=== PATIENT | female | born 1990 | race African-American/Black ===

== ENCOUNTER 2016-03-27 10:44 | Emergency (ER) | payer MEDICAID ==
[2016-03-27 11:15] LABS: BASOPHILS 0.1 % (0.0-2.0); EOSINOPHILS 0.5 % (0-7); HEMATOCRIT 32.9 % (36.0-48.0); HEMOGLOBIN 10.9 g/dL (12-16); IMMATURE GRANULOCYTES 0.2 % (0-5); LYMPHOCYTES 26.1 % (15-50); MCH 31.6 pg (26.0-34.0); MCHC 33.1 g/dL (31.0-37.0); MCV 95.4 fL (80.0-100.0); MONOCYTES 6.1 % (2-11); PLATELET COUNT 170 10x3/uL (130-400); RBC 3.45 10x6/uL (4.00-5.40); RDW 13.9 % (11.5-14.5); WBC 8.6 10x3/uL (4.8-10.8)
[2016-03-27 11:25] LABS: ALBUMIN 3.2 g/dL (3.4-5.0); ALKALINE PHOSPHATASE 55 U/L (46-116); ALT (SGPT) 25 U/L (10-68); BILIRUBIN - TOTAL 0.16 mg/dL (0.2-1.3); CALC OSMOLALITY 273 mosm/kg (275-300); CALCIUM 8.9 mg/dL (8.5-10.1); CHLORIDE - SERUM 104 mmol/L (98-107); CREATININE - SERUM 0.6 mg/dL (0.6-1.3); GLUCOSE 80 mg/dL (74-106); POTASSIUM - SERUM 3.6 mmol/L (3.5-5.1); PROTEIN - SERUM 6.9 g/dL (6.4-8.2); SODIUM 138 mmol/L (136-145); UREA NITROGEN 10 mg/dL (7-18); eGFR NON AFRICAN AMERICAN > 90 mL/min (90-120)
[2016-03-27 11:48] LABS: HCG - QUANTITATIVE (MATERNAL) 9639 mIU/mL
[2016-03-27 11:51] LABS: APPEARANCE CLOUDY (CLEAR); BILIRUBIN NEGATIVE (NEGATIVE); COLOR YELLOW (YELLOW); GLUCOSE NEGATIVE (NEGATIVE); KETONE NEGATIVE (NEGATIVE); LEUKOCYTE ESTERASE TRACE (NEGATIVE); NITRITE NEGATIVE (NEGATIVE); PROTEIN NEGATIVE (NEGATIVE); UROBILINOGEN NORMAL (NORMAL)
[2016-03-27 11:52] LABS: BACTERIA MODERATE /hpf (NONE SEEN); MUCUS <1+ /lpf (NONE SEEN); WHITE CELLS - URINE OCC /hpf (0-5)
[2016-06-03] MEDS ORDERED: ZOVIRAX400 MG (17:12)
[2016-06-03] MEDS ORDERED: DOK100 MG (17:13)
[2016-06-03] MEDS ORDERED: [UNRECOGNIZED DRUG - OTHER] (17:14)
[2016-06-03] MEDS ORDERED: PROTONIX40 MG (17:15)
== END 2016-03-27 12:16 | disposition home or self-care (01) ==
LOC: D.ER 10:44
PROVIDERS: Emergency Medicine
DX: R10.9 Unspecified abdominal pain (principal); R82.71 Bacteriuria; Z3A.17 17 weeks gestation of pregnancy; F41.9 Anxiety disorder, unspecified; F39 Unspecified mood [affective] disorder

== ENCOUNTER → 2016-06-03 16:10 | Outpatient (CLI) | payer MEDICAID ==
[~2016-06-03 16:10] MED LIST: DOK100 MG; PROTONIX40 MG; ZOVIRAX400 MG; [UNRECOGNIZED DRUG - OTHER]
[2016-06-03 17:28] LABS: BASOPHILS 0.1 % (0.0-2.0); EOSINOPHILS 0.4 % (0-7); HEMATOCRIT 28.9 % (36.0-48.0); HEMOGLOBIN 9.8 g/dL (12-16); IMMATURE GRANULOCYTES 0.5 % (0-5); MCH 32.6 pg (26.0-34.0); MCHC 33.9 g/dL (31.0-37.0); MEAN PLATELET VOLUME 11.7 fL (7.4-10.4); MONOCYTES 8.3 % (2-11); NEUTROPHILS 70.7 % (40-80); PLATELET COUNT 164 10x3/uL (130-400); RBC 3.01 10x6/uL (4.00-5.40); RDW 13.1 % (11.5-14.5); WBC 10.4 10x3/uL (4.8-10.8)
[2016-06-03 17:41] LABS: APPEARANCE CLEAR (CLEAR); BILIRUBIN NEGATIVE (NEGATIVE); COLOR YELLOW (YELLOW); GLUCOSE NEGATIVE (NEGATIVE); KETONE NEGATIVE (NEGATIVE); LEUKOCYTE ESTERASE NEGATIVE (NEGATIVE); NITRITE NEGATIVE (NEGATIVE); PROTEIN NEGATIVE (NEGATIVE); UROBILINOGEN NORMAL (NORMAL)
[2016-06-03 17:58] LABS: ALBUMIN 2.8 g/dL (3.4-5.0); ALKALINE PHOSPHATASE 66 U/L (46-116); ALT (SGPT) 21 U/L (10-68); BILIRUBIN - TOTAL 0.16 mg/dL (0.2-1.3); CALC OSMOLALITY 272 mosm/kg (275-300); CALCIUM 8.4 mg/dL (8.5-10.1); CARBON DIOXIDE 25.4 mmol/L (21.0-32.0); CHLORIDE - SERUM 104 mmol/L (98-107); CREATININE - SERUM 0.6 mg/dL (0.6-1.3); GLUCOSE 77 mg/dL (74-106); POTASSIUM - SERUM 3.7 mmol/L (3.5-5.1); PROTEIN - SERUM 6.1 g/dL (6.4-8.2); SODIUM 138 mmol/L (136-145); UREA NITROGEN 6 mg/dL (7-18); eGFR NON AFRICAN AMERICAN > 90 mL/min (90-120)
== END | disposition home or self-care (01) ==
LOC: D.LDO 16:10
PROVIDERS: Obstetrics & Gynecology
DX: Z34.02 Encounter for supervision of normal first pregnancy, second trimester (principal); Z3A.27 27 weeks gestation of pregnancy; R19.7 Diarrhea, unspecified; R11.2 Nausea with vomiting, unspecified

== ENCOUNTER → 2016-07-03 11:43 | Outpatient (CLI) | payer MEDICAID ==
[2016-07-03 12:35] LABS: APPEARANCE HAZY (CLEAR); BILIRUBIN NEGATIVE (NEGATIVE); COLOR YELLOW (YELLOW); GLUCOSE NEGATIVE (NEGATIVE); KETONE NEGATIVE (NEGATIVE); LEUKOCYTE ESTERASE NEGATIVE (NEGATIVE); NITRITE NEGATIVE (NEGATIVE); PROTEIN NEGATIVE (NEGATIVE); SPECIFIC GRAVITY 1.005 (1.005-1.020); UROBILINOGEN NORMAL (NORMAL)
== END | disposition home or self-care (01) ==
LOC: D.LDO 11:43
PROVIDERS: Obstetrics & Gynecology
DX: O26.899 Other specified pregnancy related conditions, unspecified trimester (principal); M25.551 Pain in right hip; R30.9 Painful micturition, unspecified; R05 Cough; R09.89 Other specified symptoms and signs involving the circulatory and respiratory systems; R10.9 Unspecified abdominal pain

== ENCOUNTER 2016-07-05 16:23 | Emergency (ER) | payer MEDICAID ==
[2016-07-05 17:21] LABS: BASOPHILS 0.1 % (0-2); EOSINOPHILS 0.3 % (0-7); HEMATOCRIT 28.9 % (36.0-48.0); HEMOGLOBIN 9.8 g/dL (12-16); IMMATURE GRANULOCYTES 0.7 % (0-5); LYMPHOCYTES 12.3 % (15-50); MCH 32.1 pg (26.0-34.0); MCHC 33.9 g/dL (31.0-37.0); MCV 94.8 fL (80.0-100.0); MEAN PLATELET VOLUME 10.5 fL (7.4-10.4); MONOCYTES 5.1 % (2-11); NEUTROPHILS 81.5 % (40-80); PLATELET COUNT 168 10x3/uL (130-400); RBC 3.05 10x6/uL (4.00-5.40); WBC 12.2 10x3/uL (4.8-10.8)
[2016-07-05 17:38] LABS: ALBUMIN 2.5 g/dL (3.4-5.0); ALKALINE PHOSPHATASE 100 U/L (46-116); ALT (SGPT) 23 U/L (10-68); BILIRUBIN - TOTAL 0.28 mg/dL (0.2-1.3); CALC OSMOLALITY 269 mosm/kg (275-300); CALCIUM 8.5 mg/dL (8.5-10.1); CARBON DIOXIDE 24.6 mmol/L (21.0-32.0); CHLORIDE - SERUM 104 mmol/L (98-107); CREATININE - SERUM 0.6 mg/dL (0.6-1.3); GLUCOSE 82 mg/dL (74-106); POTASSIUM - SERUM 3.5 mmol/L (3.5-5.1); PROTEIN - SERUM 6.3 g/dL (6.4-8.2); SODIUM 137 mmol/L (136-145); UREA NITROGEN 4 mg/dL (7-18); eGFR NON AFRICAN AMERICAN > 90 mL/min (90-120)
== END 2016-07-05 17:33 | disposition home or self-care (01) ==
LOC: D.ER 16:23
PROVIDERS: Emergency Medicine
DX: O26.893 Other specified pregnancy related conditions, third trimester (principal); Z3A.31 31 weeks gestation of pregnancy; R11.0 Nausea

== ENCOUNTER → 2016-07-06 13:40 | Outpatient (CLI) | payer MEDICAID ==
[2016-07-06 14:27] LABS: BASOPHILS 0.1 % (0-2); EOSINOPHILS 0.6 % (0-7); HEMATOCRIT 27.8 % (36.0-48.0); HEMOGLOBIN 9.3 g/dL (12-16); IMMATURE GRANULOCYTES 0.8 % (0-5); LYMPHOCYTES 23.9 % (15-50); MCH 32.6 pg (26.0-34.0); MCHC 33.5 g/dL (31.0-37.0); MEAN PLATELET VOLUME 11.5 fL (7.4-10.4); MONOCYTES 7.9 % (2-11); NEUTROPHILS 66.7 % (40-80); PLATELET COUNT 174 10x3/uL (130-400); RBC 2.85 10x6/uL (4.00-5.40); RDW 12.9 % (11.5-14.5)
[2016-07-06 14:31] LABS: MCV 97.5 fL (80.0-100.0); WBC 8.4 10x3/uL (4.8-10.8)
[2016-07-06 15:06] LABS: ALBUMIN 2.4 g/dL (3.4-5.0); ALKALINE PHOSPHATASE 97 U/L (46-116); ALT (SGPT) 25 U/L (10-68); BILIRUBIN - TOTAL 0.17 mg/dL (0.2-1.3); CALC OSMOLALITY 273 mosm/kg (275-300); CALCIUM 8.2 mg/dL (8.5-10.1); CARBON DIOXIDE 24.1 mmol/L (21.0-32.0); CHLORIDE - SERUM 107 mmol/L (98-107); CREATININE - SERUM 0.6 mg/dL (0.6-1.3); GLUCOSE 72 mg/dL (74-106); POTASSIUM - SERUM 3.5 mmol/L (3.5-5.1); PROTEIN - SERUM 5.4 g/dL (6.4-8.2); SODIUM 139 mmol/L (136-145); UREA NITROGEN 5 mg/dL (7-18); eGFR NON AFRICAN AMERICAN > 90 mL/min (90-120)
[2016-07-06 15:16] LABS: APPEARANCE CLOUDY (CLEAR); BILIRUBIN NEGATIVE (NEGATIVE); COLOR YELLOW (YELLOW); GLUCOSE NEGATIVE (NEGATIVE); KETONE NEGATIVE (NEGATIVE); LEUKOCYTE ESTERASE 1+ (NEGATIVE); NITRITE NEGATIVE (NEGATIVE); PROTEIN NEGATIVE (NEGATIVE); UROBILINOGEN NORMAL (NORMAL)
[2016-07-06 15:17] LABS: BACTERIA MANY /hpf (NONE SEEN); MUCUS <1+ /lpf (NONE SEEN); RED CELLS - URINE 0-5 /hpf (0-5); WHITE CELLS - URINE 0-5 /hpf (0-5)
== END | disposition home or self-care (01) ==
LOC: D.LDO 13:40
PROVIDERS: Obstetrics & Gynecology
DX: Z34.03 Encounter for supervision of normal first pregnancy, third trimester (principal); Z3A.31 31 weeks gestation of pregnancy; R11.2 Nausea with vomiting, unspecified

== ENCOUNTER → 2016-07-24 13:32 | Outpatient (CLI) | payer MEDICAID | END | disposition home or self-care (01) | LOC: D.LDO 13:32 | DX: Z34.93 Encounter for supervision of normal pregnancy, unspecified, third trimester (principal); Z3A.34 34 weeks gestation of pregnancy ==

== ENCOUNTER → 2016-08-18 10:30 | Outpatient (CLI) | payer MEDICAID | END | disposition home or self-care (01) | LOC: D.LDO 10:30 → D.ER 10:30 → EDSTATUS 11:33 | DX: Z34.03 Encounter for supervision of normal first pregnancy, third trimester (principal); V49.9XXA Car occupant (driver) (passenger) injured in unspecified traffic accident, initial encounter; Z3A.37 37 weeks gestation of pregnancy ==

== ENCOUNTER 2016-08-22 01:56 | Inpatient (IN) | payer MEDICAID ==
[~2016-08-22] VITALS: Ht 162.6 cm; Wt 75.8 kg
[2016-08-22] MEDS ORDERED: PRENATAL COMPLE1 TAB PO (02:20)
[2016-08-22 02:22] VITALS: BP 119/69; BMI 28.7
[2016-08-22 02:44] LABS: HEMATOCRIT 31.3 % (36.0-48.0); HEMOGLOBIN 10.6 g/dL (12-16); MCH 32.2 pg (26.0-34.0); MCHC 33.9 g/dL (31.0-37.0); MCV 95.1 fL (80.0-100.0); MEAN PLATELET VOLUME 12.1 fL (7.4-10.4); RBC 3.29 10x6/uL (4.00-5.40); RDW 13.5 % (11.5-14.5); WBC 11.8 10x3/uL (4.8-10.8)
[2016-08-22 02:45] LABS: APPEARANCE CLEAR (CLEAR); BACTERIA NONE SEEN /hpf (NONE SEEN); BILIRUBIN NEGATIVE (NEGATIVE); COLOR YELLOW (YELLOW); EPITHELIAL CELLS RARE /hpf (0-5); GLUCOSE NEGATIVE (NEGATIVE); KETONE NEGATIVE (NEGATIVE); LEUKOCYTE ESTERASE TRACE (NEGATIVE); NITRITE NEGATIVE (NEGATIVE); PROTEIN NEGATIVE (NEGATIVE); RED CELLS - URINE 0-5 /hpf (0-5); SPECIFIC GRAVITY 1.015 (1.005-1.020); UROBILINOGEN NORMAL (NORMAL); WHITE CELLS - URINE 0-5 /hpf (0-5)
[2016-08-22 02:52] LABS: UDS - AMPHET NEGATIVE QUAL (NEGATIVE); UDS - BARB NEGATIVE QUAL (NEGATIVE); UDS - BENZO NEGATIVE QUAL (NEGATIVE); UDS - COCAINE NEGATIVE QUAL (NEGATIVE); UDS - METH NEGATIVE QUAL (NEGATIVE); UDS - OPIATE NEGATIVE QUAL (NEGATIVE); UDS - PCP NEGATIVE QUAL (NEGATIVE); UDS - THC NEGATIVE QUAL (NEGATIVE)
[2016-08-22 07:15] VITALS: BP 116/55
--- NOTE | 2016-08-22 07:15 | NUR ---
RECEIVED PT SITTING UP IN BED. VSS. HRRR WITHOUT AUDIBLE MURMUR. BBS CLEAR. BS X 4. ABDOMEN SOFT/NON-DISTENDED. FUNDUS FIRM AT U/U. RUBRA LOCHIA MOD AMT. NO CLOTS EXPRESSED ON FUNDAL MASSAGE. PERIPAD CHANGED. NO CLOTS NOTED. NEG HOMANS' SIGN. PPP. NO EDEMA NOTED TO BLE. DTR'S 1+/1+. PT STATES LEGS CONTINUE TO FEEL NUMB. PIV OF NS WITH PITOCIN 20 UNITS INFUSING AT 25 ML/HR. SITE CLEAR. PIV CONVERTED TO SL. REGULAR DIET SERVED. SR UPX 2. CALL LIGHT IN REACH.
--- NOTE | 2016-08-22 09:00 | NUR ---
PT LYING TO LEFT SIDE. AWAKE. STATES UPPER LEGS CONTINUE NUMB. FUNDUS FIRM AT U/U. RUBRA LOCHIA SMALL TO MOD AMT. PERIPAD CHANGED. PT DENIES NEEDS OR C/O.
--- NOTE | 2016-08-22 10:00 | NUR ---
PT SITTING UP IN BED. AT THIS TIME. INSTRUCTED TO CALL NURSE WHEN FINISHED WITH FEEDING INFANT. VERBALIZES UNDERSTANDING.
--- NOTE | 2016-08-22 10:30 | NUR ---
PT OOB AND AMB TO BR. VOIDS LARGE AMT OF BLOOD-TINGED URINE. PERICARE DONE PER PT. PANTIES AND PAD ON. GOWN CHANGED. PT TRANSFERED VIA AMBULATORY TO ROOM 1257. PT TO BED. ORIENTED TO ROOM, BED, AND CALL LIGHT. SR UPX 2. CALL LIGHT IN REACH.
--- NOTE | 2016-08-22 13:18 | NUR ---
PT AMBULATORY BACK TO BED. STATES VOIDED THIRD TIME WITHOUT DIFFICULTY. C/O ABDOMINAL CRAMPING AND "SORENESS" OF "8" ON 0-10 PAIN SCALE. IBUPROFEN 600 MG GIVEN PO PER PT REQUEST TO WAIT TO TAKE PAIN MED AFTER BOYFRIEND RETURNS. PT INSTRUCTED ON MED. VERBALIZES UNDERSTANDING.
--- NOTE | 2016-08-22 14:39 | NUR ---
PT AMBULATORY IN HALLS. TOLERATES ACTIVITY WELL. VOICES NO C/O.
--- NOTE | 2016-08-22 15:19 | NUR ---
PT SITTING UP IN BED. INFANT. VSS. FUNDUS FIRM AT U/U. RUBRA LOCHIA SMALL AMT. NO CLOTS OR HEAVY BLEEDING PER PT STATES.
[2016-08-22 15:30] VITALS: BP 136/80
[2016-08-22 16:08] VITALS: Ht 162.6 cm; Wt 75.8 kg
--- NOTE | 2016-08-22 16:52 | NUR ---
PT SITTING UP IN BED. VISITS WITH FAMILY. STATES PAIN NOW "5" ON 0-10 PAIN SCALE. DENIES NEEDS OR C/O.
--- NOTE | 2016-08-22 18:25 | NUR ---
PT SITTING UP IN BED. CONSUMING REGULAR DIET. VOICES C/O MILD ABDOMINAL CRAMPING AND PAIN TO "MY BUTT". PT STATES SHOWERED AND SHOWER HELPED SOME WITH DISCOMFORT. PT FAMILY IN ROOM WITH PT.
--- NOTE | 2016-08-22 18:52 | NUR ---
REPORT GIVEN TO ONCOMING SHIFT.
[2016-08-22 19:39] VITALS: BP 125/72
--- NOTE | 2016-08-22 19:39 | NUR ---
SHIFT ASSESSMENT COMPLETED. VSS. FUNDUS FIRM INITIALLY DEVIATED TO RIGHT AND U3, BLADDER SLIGHTLY DISTENDED. PT VERBALIZES NEED TO VOID BUT STATES THAT SHE HAS BEEN "HOLDING IT BECAUSE IT HURTS TO MOVE." ENCOURAGED ACTIVITY, EXPLAINED WITH THE MORE ACTIVITY THAT IS DONE THE EASIER IT GET TO MOVE AND THE PAIN ACTUALLY DECREASES. PT UP TO VOID. EXPLAINED IMPORTANCE OF VOIDING REGULARLY AND THAT THIS ALSO HELPS TO DECREASE DISCOMFORT. FOLLOWING VOID FUNDUS U2, FIRM, SMALL AMT RUBRA LOCHIA NOTED TO PERIPAD, NO CLOTS. MILD SWELLING NOTED TO BILATERAL LABIA, ICE PACK GIVEN. PT REPORTS THAT PAIN IS CURRENTLY 9/10 TO BACK, PERINUM AND ABD CRAMPING. REQUEST PAIN MEDICATION. NORCO AND MOTRIN GIVEN PER REQUEST. S/O AT BEDSIDE CURRENLTY BONDING WITH INFANT, EDUCATED ON MEDICATIONS USES, FREQUENCY AND SIDE EFFECTS. REINFORCED WITH PT THAT IF SHE IS HOLDING INFANT AND BECOMES DROWSY TO NOTIFY GIVE TO S/O OR CALL RN TO ASSIST WITH INFANT, VERBALIZED UNDERSTANDING. INSTRUCTED ON FALL PRECAUTIONS AND USE OF CL FOR ASSISTANCE OOB PRN, VERBALIZED UNDERSTANDING. BOWEL SOUNDS PRESENT AND ACTIVE X4 QUADS. PT STATES THAT SHE IS PASSING FLATUS AND DID HAVE BM TODAY. VOIDING WITHOUT DIFFICULTY. ICE WATER AND GRAPE JUICE GIVEN PER REQUEST. S/O PROVIDED WITH LINENS AND PILLOW FOR THE NIGHT. DENIES ADDITIONAL NEEDS. CL AND PHONE WITHIN PT REACH. BED IN LOW POSITION WITH UPPER SIDE RAILS RAISED X2. WILL CONT TO MONITOR AND ASSIST PRN.
--- NOTE | 2016-08-22 20:22 | NUR ---
PAIN REASSESSMENT COMPLETED. PT REPORTS THAT PAIN IS NOW 7/10. STATES THAT IT WAS LOWER BUT CRAMPING RETURNED WHEN SHE ATTEMPTED TO BREAST FEED AND PUT INFANT SKIN TO SKIN. STATES THAT ICE PACK TO PERINUM HAS "REALLY HELPED, IT JUST FEELS BRUISED NOW." S/O REMAINS AT BEDSIDE AND SUPPORTIVE OF PT. PT DENIES NEEDS AT THIS TIME. RN EDUCATED THAT WHEN HOLDING INFANT IT IS NORMAL TO CRAMP MORE WELL FOR CRAMPING TO INCREASE DURING BREAST FEEDING, VERBALIZED UNDERSTANDING. BED REMAINS IN LOW POSITION WITH UPPER SIDE RAILS RAISED X2. CL AND PHONE WITHIN REACH.
--- NOTE | 2016-08-22 21:19 | NUR ---
ROUNDS MADE. INFANT IN CRIB AT BEDSIDE. PT FILLING OUT NB PAPERWORK. S/O REMAINS AT BEDSIDE. PAIN NOW 06/01. ICE WATER GIVEN. PT DENIES NEEDS AT THIS TIME. BED IN LOW POSITION WITH UPPER SIDE RAILS RAISED X2. CL AND PHONE WITHIN PT REACH. WILL CONT TO MONITOR AND ASSIST PRN.
--- NOTE | 2016-08-23 00:23 | NUR ---
ROUNDS MADE. PT WITH SKIN TO SKIN. ICE CHIPS AND GRAPE JUICE GIVEN PER REQUESTS. PAIN 4-5/10, NORCO OFFERED. PT STATES THAT SHE WILL CALL IF SHE DECIDES TO TAKE PAIN MEDICATION. S/O SLEEPING ON COUCH AT BEDSIDE. PT STATES THAT SHE "IS JUST SORE." BED REMAINS IN LOW POSITION, WITH UPPER SIDE RAILS RAISED X2. CL AND PHONE WITHIN PT REACH. WILL CONT TO MONITOR AND ASSIST PRN.
--- NOTE | 2016-08-23 02:09 | NUR ---
ROUNDS MADE. PT RESTING WITH EYES CLOSED. RESPIRATIONS REGULAR, NO S/S OF DISTRESS NOTED. S/O REMAINS AT BEDSIDE. CL AND PHONE WITHIN REACH. BED IN LOW POSITION WITH UPPER SIDE RAILS RAISED X2. WILL CONT TO MONITOR AND ASSIST PRN.
--- NOTE | 2016-08-23 04:14 | NUR ---
ROUNDS MADE. PT LAYING ON RIGHT SIDE RESTING WITH EYES CLOSED. RESPIRATIONS REGULAR, NO S/S OF DISTRESS NOTED. S/O SLEEPING AT BEDSIDE. IN NBN. BED IN LOW POSITION WITH UPPER SIDE RAILS RAISED X2. CL AND PHONE WITHIN PT REACH. WILL CONT TO MONITOR AND ASSIST PRN.
--- NOTE | 2016-08-23 05:55 | NUR ---
ROUNDS MADE. LAB AT BEDSIDE. PT WITH INFANT SKIN TO SKIN. DENIES NEEDS AT THIS TIME. S/O REMAINS AT BEDSIDE. BED IN LOW POSITION WITH UPPER SIDE RAILS RAISED X2. CL AND PHONE WITHIN PT REACH. WILL CONT TO MONITOR AND ASSIST PRN.
[2016-08-23 06:14] LABS: BASOPHILS 0.2 % (0-2); EOSINOPHILS 0.5 % (0-7); HEMATOCRIT 29.7 % (36.0-48.0); IMMATURE GRANULOCYTES 0.6 % (0-5); LYMPHOCYTES 28.5 % (15-50); MCH 31.9 pg (26.0-34.0); MCHC 33.7 g/dL (31.0-37.0); MCV 94.9 fL (80.0-100.0); MEAN PLATELET VOLUME 11.7 fL (7.4-10.4); MONOCYTES 8.3 % (2-11); NEUTROPHILS 61.9 % (40-80); PLATELET COUNT 166 10x3/uL (130-400); RBC 3.13 10x6/uL (4.00-5.40); RDW 13.5 % (11.5-14.5); WBC 12.6 10x3/uL (4.8-10.8)
--- NOTE | 2016-08-23 07:40 | NUR ---
PT IN HIGH FOWLERS POSITION NURSING INFANT AND EATING BREAKFAST TRAY. FRESH ICE CHIPS PROVIDED PER REQUEST. WILL RETURN AFTER BREAKFAST IS COMPLETE.
--- NOTE | 2016-08-23 08:25 | NUR ---
PT IN HIGH FOWLERS POSITION NURSING INFANT. PHYSICAL ASSESSMENT DONE, SEE SHIFT ASSESSMENT. BOWEL SOUNDS ACTIVE X 4. PT REPORTS HAVING A SMALL BM SINCE DELIVERY AND CONTINUES TO PASS GAS. FUNDUS FIRM. LIGHT RUBRA LOCHIA NOTED ON MAURICIO PAD. PT DENIES EXPRESSING CLOTS THROUGHOUT THE NIGHT. SALINE LOCK IN LEFT WRIST DCD WITH TIP INTACT PER ORDERS. PT RATES PAIN 5/10 IN ABDOMEN AND PERINEUM. REQUEST PAIN MEDICATION. ROOM CLEANED UP.
--- NOTE | 2016-08-23 08:29 | NUR ---
NORCO 5/325MG AND MOTRIN 600MG GIVEN PO FOR PAIN. PT REQUESTS NURSERY ASSISTANCE FOR BF QUESTIONS. CAMACHO SHELTON NOTIFIED AND TO ROOM. PT DENIES FURTHER NEEDS AT THIS TIME.
[2016-08-23 08:31] VITALS: BP 126/70
--- NOTE | 2016-08-23 09:30 | NUR ---
PT IN SEMI FOWLERS POSITION RESTING WITH EYES CLOSED. AROUSES TO VERBAL STIMULATION. INFANT TO NURSERY VIA CRIB FOR PT TO REST. PT RATES PAIN 2/10 AND DENIES FURTHER NEEDS.
--- NOTE | 2016-08-23 11:00 | NUR ---
PT IN LEFT LATERAL POSITON RESTING WITH EYES CLOSED.
--- NOTE | 2016-08-23 12:10 | NUR ---
PT IN LEFT LATERAL POSITION RESTING WITH EYES CLOSED. RESP. EVEN AND UNLABORED. RESTING QUIETLY IN CRIB.
--- NOTE | 2016-08-23 13:39 | NUR ---
PT AMBULATING AROUND ROOM. FAMILY AT BEDSIDE HOLDING . PT JUST FINISHED SHOWER AND REQUESTS THAT PAIN MEDICINE BE BROUGHT IN "AROUND 2PM". PT DENIES FURTHER NEEDS AT THIS TIME.
--- NOTE | 2016-08-23 15:30 | NUR ---
PT AMBULATING IN HALLWAY WITH FAMILY. PT RATES PAIN 3/10 AND DENIES FURTHER NEEDS AT THIS TIME.
--- NOTE | 2016-08-23 16:30 | NUR ---
PT AMBULATING IN THE HALLWAY WITH FAMILY AND DENIES NEEDS AT THIS TIME.
[2016-08-23 16:45] VITALS: BP 107/53
--- NOTE | 2016-08-23 16:55 | NUR ---
PT IN LEFT LATERAL POSITION, RESTING QUIETLY IN CRIB. VS OBTAINED. FF; U/U. LIGHT RUBRA LOCHIA. PT CONTINUES TO DENY PASSING CLOTS.
--- NOTE | 2016-08-23 18:30 | NUR ---
PT IN HIGH FOWLERS POSITION HOLDING INFANT AND FILLING OUT NURSURY PAPERWORK. PT DENIES PAIN OR NEEDS AT THIS TIME.
--- NOTE | 2016-08-23 19:05 | NUR ---
BEDSIDE REPORT REC'D FROM Danilo DODD RN. PT REC'D SITTING ON SIDE OF BED. STATES THAT SHE AND S/O ARE WANTING TO GO WALK AROUND UNIT. ASK THAT ASSESSMENT BED COMPLETED WHEN SHE RETURNS TO THE UNIT. DENIES NEEDS AT THIS TIME. INSTRUCTED TO USE CL WHEN SHE RETURNS TO ROOM AND IS READY FOR ASSESSMENT TO BE COMPLETED, VERBALIZED UNDERSTANDING.
[2016-08-23 19:33] VITALS: BP 115/64
--- NOTE | 2016-08-23 19:33 | NUR ---
PT CALLS VIA CL, REPORTS THAT SHE IS BACK TO HER ROOM. RN TO ROOM, SHIFT ASSESSMENT COMPLETED. FUNDUS FIRM, U3 WITH SMALL AMT RUBRA LOCHIA TO PERIPAD. PT REPORTS THAT PAIN IS 3-4/10 FOLLOWING FUNDAL CHECK AND THAT "I'M CRAMPING A LITTLE NOW." PAIN MEDICATION OFFERED AND DECLINED AT THIS TIME. EXPLAINED FREQUENCY OF PAIN MEDS AND THAT SHE HAD TO ASK FOR THEM, VERBALIZED UNDERSTANDING. S/O AT BEDSIDE, SUPPORTIVE OF PT. BOWEL SOUNDS ACTIVE X4 QUADRANTS, VOIDING WITHOUT DIFFICULTY, STATES THAT SHE HAS NOT HAD A BM TODAY. DISCHARGE PLANNING DISCUSSED WITH PT AND S/O, DENIES QUESTIONS AT THIS TIME. TRASH TAKEN OUT OF ROOM AND NEW TRASH BAGS PUT IN TRASH CANS. PERIPADS AND DISPOSABLE PANTIES GIVEN PER REQUEST. DENIES ADDITIONAL NEEDS AT THIS TIME. CL AND PHONE WITHIN PT REACH. NBN RN TO ROOM WITH INFANT. BED IN LOW POSITION WITH UPPER SIDE RAILS RAISED X2. WILL CONT TO MONITOR AND ASSIST PRN.
--- NOTE | 2016-08-23 20:31 | NUR ---
ROUNDS MADE. S/O AT BEDSIDE. PT UP TO BATHROOM VOIDING. DENIES NEEDS AT THIS TIME. CONTINUES TO RATE PAIN 4/10, STATES THAT SHE WANTS TO WAIT UNTIL LATER TO TAKE PAIN MEDICATION BECAUSE IT MAKES HER DROWSY AND SHE HAS VISITORS COMING AND WANTS TO FEED INFANT AGAIN PRIOR TO TAKING. BED REMAINS IN LOW POSITION WITH UPPER SIDE RAILS RAISED X2. CL AND PHONE WITHIN REACH. WILL CONT TO MONITOR AND ASSIST PRN.
--- NOTE | 2016-08-23 21:29 | NUR ---
ROUNDS MADE. PT SITTING IN HIGH FOWLERS POSITION CONVERSING AND LAUGHING WITH VISITORS. DENIES NEEDS AT THIS TIME. CL AND PHONE WITHIN PT REACH. WILL CONT TO MONITOR AND ASSIST PRN. BED IN LOW POSITION.
--- NOTE | 2016-08-23 22:39 | NUR ---
ROUNDS MADE. PT AND ASKS FOR PAIN MEDS. STATES PAIN IS 8/10, INTERMITTENT ABD CRAMPING. PT REQUEST MOTRIN AND NORCO BE TAKEN AT THE SAMES TIME STATING THAT THEY SEEM TO WORK BETTER TOGETHER. S/O REMAINS AT BEDSIDE AND SUPPORTIVE OF PT. PT REPORTS THAT RIGHT NIPPLE IS REALLY SORE, CRACK NOTED. LANOLIN GIVEN WITH INSTRUCTION ON USE, DEMONSTRATED UNDERSTANDING. BED IN LOW POSITION WITH UPPER SIDE RAILS RAISED X2. CL AND PHONE PLACED WITHIN PT REACH. PT STATES THAT IF SHE GETS DROWSY SHE WILL HAVE S/O TAKE . WILL CONT TO MONITOR AND ASSIST PRN
--- NOTE | 2016-08-23 23:29 | NUR ---
PAIN REASSESSMENT COMPLETED. PT REPORTS THAT PAIN IS 5/10, DENIES NEED FOR ADDITIONAL INTERVENTION. WILL CONT TO MONITOR AND ASSIST PRN. PT CURRENTLY BONDING WITH INFANT.
--- NOTE | 2016-08-24 00:31 | NUR ---
ROUNDS MADE. PT CONTINUES TO BE BONDING WITH . PAIN 05/01, DENIES NEEDS AT THIS TIME. S/O SLEEPING ON COUCH. BED IN LOW POSITION WITH UPPER SIDE RAILS RAISED X2. CL AND PHONE WITHIN REACH. WILL CONT TO MONITOR AND ASSIST PRN.
--- NOTE | 2016-08-24 02:18 | NUR ---
ROUNDS MADE. PT FOUND TO BE SLEEPING WITH INFANT IN BED WITH HER. PT WOKE BY RN, REINFORCED THAT CAN'T BE IN BED WITH HER SLEEPING. PLACED IN CRIB. PT REQUESTS INFANT BE TAKEN TO NBN FOR HER TO REST. DENIES NEEDS AT THIS TIME. S/O SLEEPING ON COUCH. BED IN LOW POSITION, UPPER SIDE RAILS RAISED X2. CL AND PHONE WITHIN PT REACH. BACK TO NBN. WILL CONT TO MONITOR AND ASSIST PRN.
--- NOTE | 2016-08-24 04:06 | NUR ---
ROUNDS MADE. PT IN HIGH FOWLWERS POSITION BONDING WITH . DENIES NEEDS AT THIS TIME. S/O CONTINUES TO SLEEP ON COUCH. PAIN 3-4/10, DENIES NEED FOR INTERVENTION AT THIS TIME. BED IN LOW POSITION WITH UPPER SIDE RAILS RAISED X2. CL AND PHONE WITHIN REACH. WILL CONT TO MONITOR AND ASSIST PRN.
--- NOTE | 2016-08-24 05:53 | NUR ---
ROUNDS MADE. PT REPORTS THAT PAIN IS 8/10 ABD CRAMPING. PT WITH INFANT SKIN TO SKIN AND REPOPTS THAT SHE JUST FINISHED BREAST FEEDING. PT ASKS FOR MOTRIN AND NORCO, GIVEN PER REQUEST. ICE CHIPS AND ORANGE JUICE GIVEN. S/O REMAINS IN ROOM SLEEPING ON COUCH. DENIES ADDITIONAL NEEDS. BED IN LOW POSITION WITH UPPER SIDE RAILS RAISED X2. CL AND PHONE WITHIN PT REACH.
--- NOTE | 2016-08-24 06:44 | NUR ---
PAIN REASSESSMENT COMPLETED. PT RESTING WITH EYES CLOSED IN SEMI FOWLERS POSITIONS. RESPIRATIONS REGULAR AND UNLABORED. S/O REMAIN IN ROOM SLEEPING ON COUCH. BED IN LOW POSITION WITH UPPER SIDE RAILS RAISED X2. CL AND PHONE WITHIN REACH. WILL CONT TO MONITOR AND ASSIST PRN.
[2016-08-24 07:55] VITALS: BP 126/77
--- NOTE | 2016-08-24 07:55 | NUR ---
THIS RN TO ROOM FOR SHIFT ASSESSMENT. PT SITTING UP IN BED TALKING ON PHONE. PT ENDS PHONE CALL FOR ASSESSMENT. SHIFT ASSESSMENT COMPLETED, VSS, SEE FLOWSHEET FOR DOC. PT DENIES HEAVY LOCHIA, EDUCATED ON WHAT TO REPORT. UNDERSTANDING VERBALIZED. PT C/O PAIN IN ABD, CRAMPING, AND PAIN AT COCCYX FROM SITTING IN BED. PT REQUESTING PAIN MEDICATION. PT INSTRUCTED ON ORDERED TIMES FOR PAIN MEDICATION, AND THAT NO MEDS ARE AVAILABLE TO ADMIN AT THIS TIME IT HAS ONLY BEEN 2 HOURS SINCE SHE RECEIVED BOTH PAIN MEDS. PT ENCOURAGED TO AMBULATE AND TAKE A WARM SHOWER TO HELP WITH PAIN RELIEF. UNDERSTANDING VERBALIZED, PT STATES "YEAH I DO NEED TO GET UP OUT OF THIS BED." PT PROVIDED WITH TOWELS AND CLOTHS FOR SHOWER, DENIES FURTHER NEEDS. DISCHARGE TO HOME TODAY DISCUSSED WITH PT, WILL PROCEED WITH DISCHARGE ORDERED. SRUx2, CL IN REACH. WILL CONT TO MONITOR.
--- NOTE | 2016-08-24 11:07 | NUR ---
PT CALLS OUT WAFER FAB TECHNICIAN LIGHT REQUESTING PAIN MEDICATION, ADMIN ORDERED. SEE EMAR FOR DOC.
--- NOTE | 2016-08-24 11:45 | NUR ---
PT GIVEN D/C INSTRUCTIONS WELL WRITTEN PRESCIPTIONS FOR PAIN CONTROL POST DISCHARGE TO HOME. PT VERBALIZES UNDERSTANDING AND DENIES QUESTIONS. WILL CALL FOR W/C TO PRIVATE VEHICLE FOR D/C.
--- NOTE | 2016-08-24 11:52 | NUR ---
PT TAKEN OUT VIA W/C TO PRIVATE VEHICLE FOR D/C TO HOME. FOB TO DRIVE PT HOME.
[2016-08-25 03:09] LABS: RAPID PLASMA REAGIN Non Reactive (Non Reactive)
== END 2016-08-24 11:52 | disposition home or self-care (01) | DRG 774 ==
LOC: D.LD 01:56
PROVIDERS: ADMIT Obstetrics & Gynecology
PROC: 10E0XZZ Delivery of Products of Conception, External Approach (ICD-10-PCS; principal; 2016-08-22)
DX: O98.32 Other infections with a predominantly sexual mode of transmission complicating childbirth (principal); O99.324 Drug use complicating childbirth; A60.00 Herpesviral infection of urogenital system, unspecified; Z3A.38 38 weeks gestation of pregnancy; Z37.0 Single live birth; O99.824 Streptococcus B carrier state complicating childbirth; O99.02 Anemia complicating childbirth; O99.334 Smoking (tobacco) complicating childbirth; F12.90 Cannabis use, unspecified, uncomplicated

== ENCOUNTER 2016-10-24 17:02 | Emergency (ER) | payer MEDICAID ==
[2016-08-22 16:08] VITALS: BMI 28.6
[~2016-10-24 17:02] MED LIST changes: +PRENATAL COMPLE1 TAB PO
[2016-10-24 17:48] LABS: APPEARANCE CLEAR (CLEAR); BILIRUBIN NEGATIVE (NEGATIVE); COLOR YELLOW (YELLOW); GLUCOSE NEGATIVE (NEGATIVE); KETONE NEGATIVE (NEGATIVE); LEUKOCYTE ESTERASE NEGATIVE (NEGATIVE); NITRITE NEGATIVE (NEGATIVE); PROTEIN NEGATIVE (NEGATIVE); SPECIFIC GRAVITY 1.025 (1.005-1.020); UROBILINOGEN NORMAL (NORMAL)
[2016-10-24 18:13] LABS: BASOPHILS 0.3 % (0-2); EOSINOPHILS 2.4 % (0-7); HEMOGLOBIN 13.2 g/dL (12-16); IMMATURE GRANULOCYTES 0.2 % (0-5); LYMPHOCYTES 46.2 % (15-50); MCH 31.1 pg (26.0-34.0); MCHC 33.8 g/dL (31.0-37.0); MEAN PLATELET VOLUME 12.2 fL (7.4-10.4); MONOCYTES 8.3 % (2-11); NEUTROPHILS 42.6 % (40-80); PLATELET COUNT 181 10x3/uL (130-400); RBC 4.24 10x6/uL (4.00-5.40); RDW 13.1 % (11.5-14.5); WBC 5.9 10x3/uL (4.8-10.8)
[2016-10-24 18:27] LABS: ALBUMIN 3.8 g/dL (3.4-5.0); ALKALINE PHOSPHATASE 116 U/L (46-116); ALT (SGPT) 20 U/L (10-68); AMYLASE - SERUM 77 U/L (25-115); BILIRUBIN - TOTAL 0.37 mg/dL (0.2-1.3); CALC OSMOLALITY 282 mosm/kg (275-300); CALCIUM 8.9 mg/dL (8.5-10.1); CARBON DIOXIDE 29.2 mmol/L (21.0-32.0); CHLORIDE - SERUM 105 mmol/L (98-107); CREATININE - SERUM 0.9 mg/dL (0.6-1.3); GLUCOSE 82 mg/dL (74-106); HCG SERUM NEGATIVE (NEGATIVE); LIPASE 363 U/L (73-393); POTASSIUM - SERUM 3.7 mmol/L (3.5-5.1); PROTEIN - SERUM 7.5 g/dL (6.4-8.2); SODIUM 143 mmol/L (136-145); UREA NITROGEN 9 mg/dL (7-18); eGFR NON AFRICAN AMERICAN 80 mL/min (90-120)
== END 2016-10-24 19:33 | disposition home or self-care (01) ==
LOC: D.ER 17:02
PROVIDERS: Emergency Medicine
DX: K29.00 Acute gastritis without bleeding (principal)

== ENCOUNTER 2018-01-02 06:08 | Emergency (ER) | payer MEDICAID ==
[~2018-01-02] VITALS: Ht 162.6 cm; Wt 55.5 kg
[2018-01-02 06:18] VITALS: Ht 162.6 cm; Wt 55.5 kg
[2018-01-02 07:15] LABS: BASOPHILS 0.2 % (0-2); EOSINOPHILS 0.4 % (0-7); HEMATOCRIT 33.4 % (36.0-48.0); HEMOGLOBIN 11.2 g/dL (12-16); IMMATURE GRANULOCYTES 0.3 % (0-5); LYMPHOCYTES 17.2 % (15-50); MCH 29.9 pg (26.0-34.0); MCHC 33.5 g/dL (31.0-37.0); MCV 89.3 fL (80.0-100.0); MEAN PLATELET VOLUME 11.4 fL (7.4-10.4); NEUTROPHILS 74.9 % (40-80); PLATELET COUNT 190 10x3/uL (130-400); RBC 3.74 10x6/uL (4.00-5.40); RDW 15.2 % (11.5-14.5); WBC 11.6 10x3/uL (4.8-10.8)
[2018-01-02 07:29] LABS: HCG SERUM NEGATIVE (NEGATIVE)
[2018-01-02 07:51] LABS: ALBUMIN 3.2 g/dL (3.4-5.0); ALKALINE PHOSPHATASE 68 U/L (46-116); ALT (SGPT) 32 U/L (10-68); BILIRUBIN - TOTAL 0.29 mg/dL (0.2-1.3); CALC OSMOLALITY 274 mosm/kg (275-300); CALCIUM 8.7 mg/dL (8.5-10.1); CARBON DIOXIDE 24.5 mmol/L (21.0-32.0); CHLORIDE - SERUM 101 mmol/L (98-107); CREATININE - SERUM 0.8 mg/dL (0.6-1.3); GLUCOSE 122 mg/dL (74-106); POTASSIUM - SERUM 3.1 mmol/L (3.5-5.1); PROTEIN - SERUM 7.4 g/dL (6.4-8.2); SODIUM 137 mmol/L (136-145); UREA NITROGEN 12 mg/dL (7-18); eGFR NON AFRICAN AMERICAN 90 mL/min (90-120)
[2018-01-02] MEDS ORDERED: AMOXIL875 MG PO (08:54)
[2018-01-02 09:34] VITALS: BP 119/62
== END 2018-01-02 09:35 | disposition home or self-care (01) ==
LOC: D.ER 06:08
PROVIDERS: Family Medicine
DX: J02.0 Streptococcal pharyngitis (principal); M79.18 Myalgia, other site; F17.200 Nicotine dependence, unspecified, uncomplicated

== ENCOUNTER 2019-08-21 19:33 | Outpatient (CLI) | payer MEDICAID ==
[2018-01-02 06:18] VITALS: BMI 21.0
[~2019-08-21 19:33] MED LIST changes: +AMOXIL875 MG PO
[2019-08-21 20:21] LABS: BILIRUBIN NEGATIVE (NEGATIVE); GLUCOSE NEGATIVE (NEGATIVE); KETONE NEGATIVE (NEGATIVE); NITRITE NEGATIVE (NEGATIVE); UROBILINOGEN NORMAL (NORMAL)
[2019-08-21 20:22] LABS: WHITE CELLS - URINE OCC /hpf (NEGATIVE)
[2019-08-21 20:36] LABS: UDS - AMPHET NEGATIVE QUAL (NEGATIVE); UDS - BARB NEGATIVE QUAL (NEGATIVE); UDS - BENZO NEGATIVE QUAL (NEGATIVE); UDS - COCAINE POSITIVE QUAL (NEGATIVE); UDS - OPIATE NEGATIVE QUAL (NEGATIVE); UDS - PCP NEGATIVE QUAL (NEGATIVE); UDS - THC NEGATIVE QUAL (NEGATIVE)
== END 2019-08-21 21:12 | disposition home or self-care (01) ==
LOC: D.LDO 19:33
PROVIDERS: ATTEND Obstetrics & Gynecology
DX: O26.893 Other specified pregnancy related conditions, third trimester (principal); Z3A.30 30 weeks gestation of pregnancy; R10.9 Unspecified abdominal pain

== ENCOUNTER 2019-10-14 01:10 | Inpatient (IN) | payer MEDICAID ==
[~2019-10-14] VITALS: Ht 162.6 cm; Wt 65.8 kg
--- NOTE | 2019-10-14 01:11 | NUR ---
CAMACHO FROM NURSERY AT BEDSIDE, ATTENDING TO BABY. PT MOTHER HELPED ONTO BED FROM WHEELCHAIR. PT DELIVERED PLACENTA IN WHEELCHAIR, LAB CALLED.
--- NOTE | 2019-10-14 01:29 | NUR ---
PT ACCEPTED TO ROOM 1274 VIA STRETCHER WITH ON HER CHEST. PT TRANSFERRED TO BED. VSS, FUNDUS FIRM MIDLINE WITH LARGE AMOUNT OF RUBRA LOCHIA. PERINEUM APPEARS INTACT. PLACENTA IN BUCKET BROUGHT WITH PT. PT GOWN CHANGED AND MAURICIO PAD APPLIED.
[2019-10-14 01:56] VITALS: BP 137/69; Ht 162.6 cm; Wt 65.8 kg
--- NOTE | 2019-10-14 03:20 | NUR ---
RECOVERY COMPLETE. PT RESTING IN BED, FUNDUS FIRM 2FB BELOW UMBILICUS WITH SCANT AMT OF RUBRA LOCHIA. INSTRUCTED PT TO CALL BEFORE AMBULATING TO BR FOR ASSIST. PT VOICED UNDERSTANDING. ALSO EXPLAINED ORDER FOR URINE SPECIMEN PT VOICED UNDERSTANDING
--- NOTE | 2019-10-14 05:05 | NUR ---
PT UP TO BR VOIDED LARGE AMOUNT, URINE COLLECTED FOR UDS. LINENS CHANGED. PT BACK TO BED. FUNDUS FIRM ML 1 FB BELOW UMBILICUS WITH SMALL AMOUNT OF RUBRA LOCHIA. S/O AT BEDSIDE
[2019-10-14 06:49] LABS: UDS - AMPHET NEGATIVE QUAL (NEGATIVE); UDS - BARB NEGATIVE QUAL (NEGATIVE); UDS - BENZO NEGATIVE QUAL (NEGATIVE); UDS - COCAINE POSITIVE QUAL (NEGATIVE); UDS - OPIATE NEGATIVE QUAL (NEGATIVE); UDS - PCP NEGATIVE QUAL (NEGATIVE); UDS - THC NEGATIVE QUAL (NEGATIVE)
[2019-10-14 07:34] VITALS: BP 135/97
--- NOTE | 2019-10-14 07:55 | NUR ---
phoned dr zimmer, reviewed pt c/o abd pain and cramping, elevated bp on am assessment, uds results post delivery this am. orders received, noted, and relayed to pt. additional blanket and pillows provided to pt and significant other upon request. call light in easy reach, bed in low position, pt resp even and unlabored. computer laboratory technician here to draw ordered labwork.
[2019-10-14 08:22] LABS: BASOPHILS 0.1 % (0-2); EOSINOPHILS 0.2 % (0-7); HEMATOCRIT 30.6 % (36.0-48.0); HEMOGLOBIN 9.9 g/dL (12-16); IMMATURE GRANULOCYTES 0.3 % (0-5); LYMPHOCYTES 22.1 % (15-50); MCH 29.7 pg (26.0-34.0); MCHC 32.4 g/dL (31.0-37.0); MCV 91.9 fL (80.0-100.0); MEAN PLATELET VOLUME 11.2 fL (7.4-10.4); MONOCYTES 8.8 % (2-11); NEUTROPHILS 68.5 % (40-80); PLATELET COUNT 186 10x3/uL (130-400); RBC 3.33 10x6/uL (4.00-5.40); RDW 13.7 % (11.5-14.5); WBC 12.2 10x3/uL (4.8-10.8)
--- NOTE | 2019-10-14 08:30 | NUR ---
PAIN NOW A 4-5 ON NUMERIC PAIN SCALE, PT RESTING WITH EYES CLOSED IN LEFT LATERAL POSITION, DENIES NEEDS/CONCERNS AT PRESENT. CALL LIGHT IN EASY REACH. SIDE RAILS UP X2, BED IN LOW POSITION.
[2019-10-14 08:58] LABS: CALC OSMOLALITY 275 mosm/kg (275-300); CALCIUM 8.7 mg/dL (8.5-10.1); CARBON DIOXIDE 27.8 mmol/L (21.0-32.0); CHLORIDE - SERUM 106 mmol/L (98-107); CREATININE - SERUM 0.7 mg/dL (0.6-1.3); POTASSIUM - SERUM 3.9 mmol/L (3.5-5.1); SODIUM 139 mmol/L (136-145); UREA NITROGEN 11 mg/dL (7-18); eGFR NON AFRICAN AMERICAN > 90 mL/min (90-120)
[2019-10-14 09:03] LABS: GLUCOSE 73 mg/dL (74-106)
[2019-10-14 09:04] LABS: ALBUMIN 2.4 g/dL (3.4-5.0); ALKALINE PHOSPHATASE 164 U/L (30-120); ALT (SGPT) 16 U/L (10-68); BILIRUBIN - DIRECT 0.11 mg/dL (0.00-0.30); BILIRUBIN - INDIRECT 0.14 mg/dL (0.00-1.00); BILIRUBIN - TOTAL 0.25 mg/dL (0.2-1.3); URIC ACID 3.5 mg/dL (2.6-7.2)
--- NOTE | 2019-10-14 09:30 | NUR ---
ROUNDS COMPLETED, DENIES NEEDS/CONCERNS AT PRESENT, RESP EVEN AND UNLABORED, DENIES DWYER/BLURRY VISION, DENIES PASSAGE OF CLOTS OR HEAVY BLEEDING, FUNDUS FIRM AT U/1 AND MIDLINE. CALL LIGHT IN EASY REACH, CONTINUE TO MONITOR.
--- NOTE | 2019-10-14 10:45 | NUR ---
ROUNDS COMPLETED, SNACK REQUESTED AND PROVIDED. PT C/O ABD PAIN AND CRAMPING, PRN MOTRIN GIVEN WITH SIPS WATER. INFANT IN ARMS, NAD NOTED. PT REPORTS PASSING SEVERAL DIME SIZED CLOTS AND ONE QUARTER SIZED CLOT AFTER VOIDING A FEW MINUTES AGO. DENIES FURTHER HEAVY BLEEDING, FF AT U/1. CALL LIGHT IN EASY REACH. BED IN LOW POSITION.
--- NOTE | 2019-10-14 11:30 | NUR ---
rounds completed, pt reports right lower leg itching and "it's numb" to area where she states the nurse gave her an injection of "some kind" after delivery, area is not red, swollen, or tender to palpation r thigh. there is no swelling to right or left lle. negative kyleigh's sign b le. denies need for pain medication.
[2019-10-14 11:40] LABS: BILIRUBIN NEGATIVE (NEGATIVE); KETONE NEGATIVE (NEGATIVE); NITRITE NEGATIVE (NEGATIVE); UROBILINOGEN NORMAL (NORMAL)
[2019-10-14 11:47] LABS: EPITHELIAL CELLS OCC /hpf (0-5); RED CELLS - URINE >50 /hpf (0-5)
--- NOTE | 2019-10-14 12:35 | NUR ---
rounds completed, tolerating regular diet without difficulty, no further passage of clots, fundus firm at u/1 and midline, denies needs/concerns. call light in easy reach. side rails up x2, bed in low position.
--- NOTE | 2019-10-14 13:20 | NUR ---
rounds completed, nad noted, denies needs, resp even and unlabored. will monitor.
--- NOTE | 2019-10-14 14:21 | NUR ---
rounds completed, nad noted, resting with eyes closed, resp even and unlabored, continue to monitor.
[2019-10-14 15:05] VITALS: BP 104/58
--- NOTE | 2019-10-14 15:07 | NUR ---
rounds completed, vss, afebrile, tolerating po and voiding without difficulty, fundus firm at u/1, lying left lateral position, resp even and unlabored, denies pain or discomfort, resting nad in rolling crib adjacent to bed, call light in easy reach, continue to monitor.
--- NOTE | 2019-10-14 16:55 | NUR ---
rounds completed, anti tank missileman to pt room to discuss condition and required follow up care with specialist in [place] within next 2-3 weeks after discharge. pt voices understanding of required follow up. on inquiry, pt denies needs/concerns or requests from this rn at this time, resp even and unlabored, nad. continue to monitor. call light in easy reach.
--- NOTE | 2019-10-14 17:49 | NUR ---
pt c/o low abdominal pain/cramping requesting prn meds; same provided with sips ice water. states has passed small clots on last void but "not big" and states "i have heavy periods and i'm used to having clots". reviewed risk of passing clots and rationale for maintaining iv access when pt asking for removal. after reviewing, pt states " i will just keep it". will monitor.
--- NOTE | 2019-10-14 18:11 | NUR ---
notified per lab staff of need for additional urine for sendout confirmation uds required, urine cup given to pt to use for void, pt states "i missed the cup but i'll get it for you." will pass on to oncoming shift staff for need to deliver to lab.
[2019-10-14 20:25] VITALS: BP 127/56
--- NOTE | 2019-10-14 20:25 | NUR ---
ASSESSMENT COMPLETE. VSS, LUNG SOUNDS CLEAR, HEART RATE REGULAR WITHOUT EXTRA SOUNDS, ABD SOFT FUNDUS FIRM 2 FB BELOW UMBILICUS WITH SCANT OF RUBRA VAG BLEEDING. PT DENIES PASSING CLOTS OR FILLING PADS FREQUENTLY. PADS, UNDERWEAR, AND TOILET PAPER PROVIDED.
--- NOTE | 2019-10-14 22:30 | NUR ---
PT RESTING QUIETLY IN BED, IV DC'D PER PT REQUEST CATHLON INTACT. LYING IN BED WITH MOM AWAKE AND TENDING TO HIS NEEDS. DENIES ANY COMPLAINTS OR NEEDS
--- NOTE | 2019-10-15 00:15 | NUR ---
PT CONTINUES TO REST QUIETLY REMAINS AWAKE BUT DENIES ANY COMPLAINTS OR NEEDS
--- NOTE | 2019-10-15 02:01 | NUR ---
ROUNDS COMPLETE, PT AWAKE DENIES ANY COMPLAINTS OR NEEDS. IN NURSERY
--- NOTE | 2019-10-15 05:00 | NUR ---
TYLENOL 650 MG AND MOTRIN 600 MG GIVEN FOR C/O CRAMPING. SNACK TRAY AND JUICE PROVIDED AND KPAD STARTED TO DECREASE CRAMPING.
[2019-10-15 07:34] VITALS: BP 104/55
--- NOTE | 2019-10-15 07:41 | NUR ---
ASSESSMENT DONE-VS DONE. AWAKE AND IN ARMS. DENIES NEEDS-STATES HAS SOME CRAMPING. TENDING TO NEEDS. NO REQUESTS.
--- NOTE | 2019-10-15 07:42 | NUR ---
REG BREAKFAST SERVED.
[2019-10-15 08:39] LABS: HEMOGLOBIN 9.4 g/dL (12-16); MCH 29.9 pg (26.0-34.0); MCHC 32.4 g/dL (31.0-37.0); MCV 92.4 fL (80.0-100.0); MEAN PLATELET VOLUME 11.3 fL (7.4-10.4); RBC 3.14 10x6/uL (4.00-5.40); RDW 13.9 % (11.5-14.5); WBC 9.8 10x3/uL (4.8-10.8)
--- NOTE | 2019-10-15 10:00 | NUR ---
[facility] MACHINE OPERATOR PACKAGING AT BEDSIDE.
--- NOTE | 2019-10-15 10:00 | NUR ---
resting in bed- denies needs.
--- NOTE | 2019-10-15 11:45 | NUR ---
DR MICHELLE HERE TO SEE PT- NEW ORDER RECEIVED.
[2019-10-15 12:29] VITALS: BP 113/71
--- NOTE | 2019-10-15 12:29 | NUR ---
ROOMING IN POLICY GIVEN TO PT TO READ AND SIGN.
--- NOTE | 2019-10-15 12:33 | NUR ---
ROOMING IN POLICY SIGNED-STATES UNDERSTANDING.
--- NOTE | 2019-10-15 13:33 | NUR ---
VERBAL AND WRITTEN DISCHARGE ORDERS GONE OVER, PT STATES UNDERSTANDING TO POST DELIVERY PAIN CONTROL ALONG WITH ALL OTHER INSTRUCTIONS AND DENIES QUESTIONS OR CONCERNS.
--- NOTE | 2019-10-15 13:40 | NUR ---
PT AMB TO UNIT DESK, STATES SHE IS GOING TO GO GET CLOTHES. FOB IS HERE TO DRIVE HER, IS IN THE NURSERY AND PT HAS CONTACTED NURSERY NURSE. UNDERSTANDS THAT SHE IS DISCHARGED BUT WILL NEED TO RETURN SOON POSSIBLE AND TO CALL NURSERY WHEN SHE IS BACK TO HER ROOM.
== END 2019-10-15 13:44 | disposition home or self-care (01) | DRG 833 ==
LOC: D.ER 01:10 → D.LD 01:31
PROVIDERS: ADMIT Obstetrics & Gynecology; ATTEND Obstetrics & Gynecology
DX: O62.3 Precipitate labor (principal); Z37.0 Single live birth; Z3A.38 38 weeks gestation of pregnancy; O09.33 Supervision of pregnancy with insufficient antenatal care, third trimester

== ENCOUNTER 2020-05-05 01:32 | Observation (INO) | payer MEDICAID ==
[~2020-05-05] VITALS: Ht 162.6 cm; Wt 53.6 kg
--- NOTE | ~2020-05-05 | OP ---
PATIENT NAME: BREANNE BROWNE MEDICAL RECORD: [id number] :88 LOCATION:[id number] ADMISSION DATE:05/05/20 SURGEON: JACOB SMITH MD DATE OF OPERATION: 05/06/2020 PREOPERATIVE DIAGNOSES: 1. Left breast abscess. 2. Polysubstance abuse. POSTOPERATIVE DIAGNOSES: 1. Left breast abscess. 2. Polysubstance abuse. PROCEDURE: I&D of left breast abscess. SURGEON: Jacob Smith MD DESCRIPTION OF PROCEDURE: The patient's left breast was prepped and draped in sterile fashion. A skin incision was made on the lateral aspect of the nipple areolar complex of the left breast and immediately purulent material was encountered. Cultures were taken times 2. We then irrigated out the wound bed with peroxide and saline solution. I penetrated the wound with a hemostat and did not feel any evidence of any tracking. We irrigated one last time and then packed the wound with quarter inch packing strips and covered this with dry gauze. COMPLICATIONS: None. CONDITION: Stable. ANESTHESIA: General endotracheal. BLOOD LOSS: 30 mL. TRANSINT:[id number] Voice Confirmation ID: [id number] DOCUMENT ID: [id number] JACOB SMITH MD CC: [id number] DICTATION DATE: 05/06/2041 NUTRITIONAL SERVICES HOST: 05/06/20 1237 ADM IN [facility] [id number] [place] [address]
--- NOTE | 2020-05-05 03:20 | NUR ---
PATIENT IN WITH C/O ABSCESS TO LEFT BREAST, HARD, PAINFUL AREA AROUND THE NIPPLE, STARTED ABOUT 4 DAYS AGO AND HAS GOTTEN WORSE, FRIEND AT BEDSIDE.
[2020-05-05 03:33] LABS: BILIRUBIN NEGATIVE (NEGATIVE); HCG URINE NEGATIVE (NEGATIVE); KETONE NEGATIVE (NEGATIVE); NITRITE NEGATIVE (NEGATIVE); UROBILINOGEN NORMAL mg/dL (< 2)
[2020-05-05 03:36] LABS: BASOPHILS 0.4 % (0-2); EOSINOPHILS 0.6 % (0-7); HEMATOCRIT 34.3 % (36.0-48.0); HEMOGLOBIN 11.1 g/dL (12-16); IMMATURE GRANULOCYTES 0.3 % (0-5); LYMPHOCYTE ABS# 3.41 10x3/uL (1.18-3.74); LYMPHOCYTES 30.4 % (15-50); MCH 28.3 pg (26.0-34.0); MCHC 32.4 g/dL (31.0-37.0); MCV 87.5 fL (80.0-100.0); MEAN PLATELET VOLUME 10.6 fL (7.4-10.4); MONOCYTES 7.6 % (2-11); NEUTROPHIL ABS# 6.79 10x3/uL (1.56-6.13); NEUTROPHILS 60.7 % (40-80); RBC 3.92 10x6/uL (4.00-5.40); WBC 11.2 10x3/uL (4.8-10.8)
[2020-05-05 03:37] LABS: PLATELET COUNT 307 10x3/uL (130-400)
[2020-05-05 03:39] LABS: UDS - AMPHET NEGATIVE QUAL (NEGATIVE); UDS - BARB NEGATIVE QUAL (NEGATIVE); UDS - BENZO NEGATIVE QUAL (NEGATIVE); UDS - COCAINE POSITIVE QUAL (NEGATIVE); UDS - OPIATE NEGATIVE QUAL (NEGATIVE); UDS - PCP NEGATIVE QUAL (NEGATIVE); UDS - THC POSITIVE QUAL (NEGATIVE)
[2020-05-05 03:40] LABS: ANION GAP 10.1 mmol/L (8-16); CALCIUM 8.9 mg/dL (8.5-10.1); CARBON DIOXIDE 28.5 mmol/L (21.0-32.0); CREATININE - SERUM 1.1 mg/dL (0.6-1.3); POTASSIUM - SERUM 3.6 mmol/L (3.5-5.1)
[2020-05-05 03:46] LABS: ALBUMIN 3.3 g/dL (3.4-5.0); BILIRUBIN - TOTAL 0.12 mg/dL (0.2-1.3); C-REACTIVE PROTEIN 1.6 mg/dL (0.0-0.9); PROTEIN - SERUM 7.9 g/dL (6.4-8.2)
[2020-05-05 04:35] VITALS: BP 129/87; BMI 20.3
--- NOTE | 2020-05-05 07:50 | NUR ---
RESTING IN BED, NO DISTRESS NOTED IV INFUSING, FAMILY IN ROOM, EYES CLOSED
[2020-05-05 09:30] VITALS: BP 132/99
[2020-05-05 09:56] VITALS: Ht 162.6 cm; Wt 53.6 kg
[2020-05-05 13:05] VITALS: BP 166/84
[2020-05-05 17:02] VITALS: BP 116/70
--- NOTE | 2020-05-05 19:28 | NUR ---
PATIENT RESTING IN BED WITH NO S/S OF DISTRESS. PATIENT REQUESTED PAIN MED WHEN DUE. GUEST AT BEDSIDE. PATIENT DENIES OTHER NEEDS AT THIS TIME. BED IN LOWEST POSITION AND CALL LIGHT IN REACH. ENCOURAGED PATIENT TO CALL WITH NEEDS.
--- NOTE | 2020-05-05 19:41 | NUR ---
ADMINISTERED MEDS PER ORDERS. PATIENT KAMILLA WELL. ENCOURAGED TO CALL WITH NEEDS.
[2020-05-05 20:00] VITALS: BP 113/76
[2020-05-05 21:57] LABS: % SATURATION 12 % (15-55); IRON 39 ug/dl (35-150); TOTAL IRON BIND CAPACITY 309 ug/dl (260-445); UNSAT IRON BIND CAPACITY 270 ug/dl (150-375)
[2020-05-06] VITALS: BP 138/84
[2020-05-06 04:00] VITALS: BP 130/73
[2020-05-06 06:41] LABS: ALBUMIN 2.6 g/dL (3.4-5.0); ALKALINE PHOSPHATASE 107 U/L (30-120); BILIRUBIN - TOTAL 0.15 mg/dL (0.2-1.3); CALCIUM 8.1 mg/dL (8.5-10.1); CARBON DIOXIDE 23.5 mmol/L (21.0-32.0); CHLORIDE - SERUM 106 mmol/L (98-107); GLUCOSE 90 mg/dL (74-106); MAGNESIUM - SERUM 1.6 mg/dL (1.8-2.4); POTASSIUM - SERUM 3.8 mmol/L (3.5-5.1); PROTEIN - SERUM 6.3 g/dL (6.4-8.2); SODIUM 136 mmol/L (136-145)
[2020-05-06 06:43] LABS: ALT (SGPT) 96 U/L (10-68); CALC OSMOLALITY 271 mosm/kg (275-300); CREATININE - SERUM 0.8 mg/dL (0.6-1.3); UREA NITROGEN 12 mg/dL (7-18); eGFR NON AFRICAN AMERICAN 89 mL/min (90-120)
[2020-05-06 06:44] LABS: BASOPHILS 0.2 % (0-2); HEMATOCRIT 27.9 % (36.0-48.0); IMMATURE GRANULOCYTES 0.1 % (0-5); LYMPHOCYTE ABS# 3.14 10x3/uL (1.18-3.74); LYMPHOCYTES 34.1 % (15-50); MCH 27.3 pg (26.0-34.0); MCHC 31.5 g/dL (31.0-37.0); MCV 86.6 fL (80.0-100.0); MONOCYTES 10.6 % (2-11); NEUTROPHIL ABS# 4.97 10x3/uL (1.56-6.13); PLATELET COUNT 268 10x3/uL (130-400); RBC 3.22 10x6/uL (4.00-5.40); RDW 14.9 % (11.5-14.5); WBC 9.2 10x3/uL (4.8-10.8)
[2020-05-06 06:45] LABS: HEMOGLOBIN 8.8 g/dL (12-16)
--- NOTE | 2020-05-06 07:42 | NUR ---
PT TAKEN FOR SURGERY
--- NOTE | 2020-05-06 09:05 | NUR ---
PATIENT STATES 9/10 PAIN. NO GUARDING. PATIENT SLEEPING. VS WNL. 103/80 BP 72 HR 99SPO2. PATIENT NOT DISPLAYING GRIMACING AT THIS TIME.
[2020-05-06] MEDS ORDERED: FLORAJEN3 CAPS460 MG PO (10:49)
[2020-05-06] MEDS ORDERED: NICODERM CQ1 EAC3 TRANSDERM (10:49)
[2020-05-06] MEDS ORDERED: CLEOCIN HCL300 MG PO (10:50)
[2020-05-06] MEDS ORDERED: HYDROCODONE-AC1 EAC2 PO (11:41)
--- NOTE | 2020-05-06 13:54 | MORECARE ---
CASE MANAGEMENT DISCHARGE SUMMARY PATIENT: BREANNE BROWNE UNIT: [id number] ADM DATE: 05/05/20 AGE: 29 : 88 SEX: F ROOM/BED: D.2205 AUTHOR: RUBI CAMACHO PHYSICIAN: REFERRING PHYSICIAN: MARGARITA CLARKE MD DATE OF SERVICE: 05/06/20 Discharge Plan Patient Name: [facility] [facility] 1990 Planned Disposition: Home or Self Care Anticipated Discharge Date: Discharge Date: Expected LOS: Initial Reviewer: [id number] Initial Review Date: 05/05/2020 Generated: 05/06/20 2:53 pm Patient Name: BREANNE BROWNE Page [id number] at 1354 All edits/amendments must be made on the electronic document DICTATION DATE: 05/06/20 1353 AUTO TESTER: CANDI 05/06/20 1353 RPT#: [id number] DC DATE: STATUS: ADM IN [facility] [address] [place] [address] END OF REPORT
--- NOTE | 2020-05-06 14:04 | MORECARE ---
CASE MANAGEMENT DISCHARGE SUMMARY PATIENT: BREANNE BROWNE UNIT: [id number] ADM DATE: 05/05/20 AGE: 29 : 88 SEX: F ROOM/BED: D.2205 AUTHOR: RUBI CAMACHO PHYSICIAN: REFERRING PHYSICIAN: MARGARITA CLARKE MD DATE OF SERVICE: 05/06/20 Discharge Plan Patient Name: BREANNE BROWNE [facility] [facility] 1990 Planned Disposition: Home or Self Care Anticipated Discharge Date: Discharge Date: Expected LOS: Initial Reviewer: [email or web address] Initial Review Date: 05/05/2020 Generated: 05/06/20 3:03 pm Comments DCP- Discharge Planning Updated by [email or web address]: Pinky Jimenes on 05/06/20 11:[address] SPOKE WITHE PATIENT ABOUT DISCHARGE NEEDS SHE STATED THAT SHE LIVES WITH HER BOYFRIEND AND HER SON AND PLANS TO RETURN THERE. HE WILL BE HER FORK ASSEMBLER HOME AND SHE STATED THAT SHE FEELS SAFE TO RETURN THERE AT [place] TODAY. NURSING SHOULD TEACH WOUND CARE FOR HER NO NEEDS FROM A CM STANDPOINT Last DP export: 05/06/20 11:54 a Patient Name: BREANNE BROWNE Page [id number] at 1404 All edits/amendments must be made on the electronic document DICTATION DATE: 05/06/20 140 TECHNOLOGY COACH: CANDI 05/06/20 1403 RPT#: [id number] DC DATE: STATUS: ADM IN [facility] [address] [place] [address] END OF REPORT
--- NOTE | 2020-05-06 16:05 | NUR ---
DISCHARGE INSTRUCTION REVIEWED WITH PT, ALL QUESTIONS ANSWERED, PT VERBALIZED UNDERSTANDING, IV REMOVED, TIP INTACT, COVERED WITH GAUZE AND TAPE, WAITING FOR PT'S RIDE TO ARRIVE
[2020-05-06 16:51] VITALS: BP 128/76
== END 2020-05-06 16:03 | disposition home or self-care (01) ==
LOC: D.ER 01:32 → OBSVTIME 03:09 → D.MS 03:09
PROVIDERS: Family Medicine; Family Medicine Adult Medicine; ADMIT Family Medicine; ATTEND Family Medicine
DX: N61.1 Abscess of the breast and nipple (principal); F19.10 Other psychoactive substance abuse, uncomplicated; F41.8 Other specified anxiety disorders

== ENCOUNTER 2020-06-26 02:53 | Emergency (ER) | payer OTHER ==
[2020-05-05 09:56] VITALS: Ht 162.6 cm; Wt 58.2 kg
[~2020-06-26] VITALS: Ht 162.6 cm; Wt 58.2 kg
[~2020-06-26 02:53] MED LIST changes: +CLEOCIN HCL300 MG PO; +FLORAJEN3 CAPS460 MG PO; +HYDROCODONE-AC1 EAC2 PO; +NICODERM CQ1 EAC3 TRANSDERM
[2020-06-26 03:02] VITALS: BP 145/92
[2020-06-26] MEDS ORDERED: BACTRIM DS TAB1 EAC1 PO (03:53)
[2020-06-26] MEDS ORDERED: HYDROCODON-ACE1 EAC7 PO (03:53)
== END 2020-06-26 04:08 | disposition home or self-care (01) ==
LOC: D.ER 02:53
DX: M27.2 Inflammatory conditions of jaws (principal)

== ENCOUNTER 2020-07-22 03:59 | Inpatient (IN) | payer OTHER ==
[~2020-07-22] VITALS: Ht 162.6 cm; Wt 56.8 kg
[~2020-07-22 03:59] MED LIST changes: +BACTRIM DS TAB1 EAC1 PO; +HYDROCODON-ACE1 EAC7 PO
--- NOTE | 2020-07-22 04:45 | NUR ---
PT NPO- INSTRUCTED AND VERBALIZES UNDERSTANING
[2020-07-22 05:02] LABS: BASOPHILS 0.4 % (0-2); EOSINOPHILS 0.5 % (0-7); HEMATOCRIT 33.8 % (36.0-48.0); HEMOGLOBIN 10.8 g/dL (12-16); LYMPHOCYTES 23.1 % (15-50); MCH 25.8 pg (26.0-34.0); MCHC 31.9 g/dL (31.0-37.0); MCV 81.2 fL (80.0-100.0); MEAN PLATELET VOLUME 9.7 fL (7.4-10.4); PLATELET COUNT 259 10x3/uL (130-400); RBC 4.16 10x6/uL (4.00-5.40); RDW 17.7 % (11.5-14.5)
--- NOTE | 2020-07-22 05:08 | NUR ---
[facility] CALLED FOR MENTAL HEALTH ASSESSMENT
[2020-07-22 05:16] LABS: CALC OSMOLALITY 275 mosm/kg (275-300); CALCIUM 8.8 mg/dL (8.5-10.1); CARBON DIOXIDE 25.1 mmol/L (21.0-32.0); CHLORIDE - SERUM 102 mmol/L (98-107); CREATININE - SERUM 0.8 mg/dL (0.6-1.3); GLUCOSE 101 mg/dL (74-106); POTASSIUM - SERUM 3.7 mmol/L (3.5-5.1); SODIUM 138 mmol/L (136-145); UREA NITROGEN 12 mg/dL (7-18); eGFR NON AFRICAN AMERICAN 89 mL/min (90-120)
[2020-07-22 05:22] LABS: ALBUMIN 3.8 g/dL (3.4-5.0); ALKALINE PHOSPHATASE 93 U/L (30-120); ALT (SGPT) 23 U/L (10-68); BILIRUBIN - TOTAL 0.21 mg/dL (0.2-1.3); PROTEIN - SERUM 8.1 g/dL (6.4-8.2)
--- NOTE | 2020-07-22 05:58 | NUR ---
DR AL NOTIFIED AND REVIEWED PT BEHAVIOR AND ASSESSMENT RESULTS. PT IS A LOW RISK PER DR AL. DR AL STATED TO GIVE RESOURCES TO PT AT TIME OF DISCHARGE. NO FURTHER ORDERS AT THIS TIME. RESOURCES REVIEWED WITH PT AND SHE VERBALIZED UNDERSTANDING.
--- NOTE | 2020-07-22 06:22 | NUR ---
TEE RETURNED CALL ASKED TO ORDER FOR SX TODAY AND KEEP PATIENT NPO. SX WILL BE FOR LEFT BREAST INCISION AND DRAINAGE OF ABSCESS. PT HAS BEEN NPO SINCE ARRIVAL TO ED. LIVE, RN CLINICAL REVIEW.
[2020-07-22 07:00] LABS: INR 1.05 (0.85-1.17); PROTIME 12.7 SECONDS (11.6-15.0)
--- NOTE | 2020-07-22 08:48 | NUR ---
RECEIVED PT TO ROOM 2123 VIA STRETCHER, PT ABLE TO TRANSFER HERSELF FROM STRETCHER TO BED WITH NO ASSISTANCE. PT A/O X4, RESP EVEN AND NONLABORED ON RA. LT AC INFUSING NS AT 50CC/HR. PT DENIES ANY PAIN AT THIS TIME. WILL ASSESS PT AND START PLAN OF CARE.
[2020-07-22 09:28] VITALS: BP 122/82; BMI 21.5
--- NOTE | 2020-07-22 12:44 | NUR ---
4MG OF MORPHINE GIVEN FOR PAIN LEVEL OF 10/10, ALSO GAVE 4MG OF ZOFRAN FOR NAUSEA. ULTRASOUND AT BEDSIDE TO DO ULTRASOUND OF LT BREAST. PT DENIES ANY OTHER NEEDS AT THIS TIME. CALL LIGHT IN REACH.
--- NOTE | 2020-07-22 12:52 | NUR ---
CALLED DR. OLIVEIRA. INFORMED HIM THAT PT IS WANTING SOMETHING TO EAT, ASKED HIM IF HE WAS PLANNING ON DOING SURGERY ON PT TODAY, DR. OLIVEIRA STATED THAT HE IS PLANNING ON DOING SURGERY LATER TODAY BUT IT WOULD BE LATE THIS EVENING. IF PT WANTED TO WAIT UNTIL TOMORROW THAT WOULD WORK OUT BETTER FOR HIS SCHEDULE. WENT AND ASKED PT IF SHE WANTED TO WAIT UNTIL TOMORROW FOR HER SURGERY OR WANTED IT DONE LATER THIS EVENING. PT STATED STHAT SHE WAS HUNGRY AND WANTED TO EAT, WILL WAIT UNTIL TOMORROW. NOTIFIED DR. OLIVEIRA AND HE STATED TO ADD PT TO TOMORROWS SCHEDULE INSTEAD.
--- NOTE | 2020-07-22 14:18 | NUR ---
SOURAV BHAKTA IN RECOVERY AND INFORMED HER THAT DR. OLIVEIRA WANTS PT ADDED TO TOMORROWS SCHEDULE FOR I/D.
[2020-07-22 16:00] VITALS: BP 112/69
--- NOTE | 2020-07-22 16:17 | NUR ---
PT RESTING COMFORTABLY IN BED, WITH EYES CLOSED, NAD NOTED, CALL LIGHT IN REACH.
--- NOTE | 2020-07-22 17:25 | NUR ---
4MG OF MORPHINE FOR GIVEN FOR PAIN LEVEL OF 10/10. PT DENIES ANY OTHER NEEDS AT THIS TIME. CALL FRANCISCO IN DR. TEE CONWAY AT BEDSIDE TO ASSESS PT.
[2020-07-22 20:16] VITALS: BP 91/49
[2020-07-22 21:33] VITALS: Ht 162.6 cm; Wt 56.8 kg
[2020-07-23] VITALS (7 sets, daily range): BP systolic 98–135; BP diastolic 53–83
--- NOTE | 2020-07-23 00:50 | NUR ---
REPORT RECEIVED. PT A&O, UP IN BED WATCHING TV. NO S/S OF DISTRESS OBSERVED. RR EVEN & UNLABORED ON RA. IV TO L AC INFUSING NS @ 50CC/HR. CONSENTS FOR I&D TO L BREAST COMPLETE. EDUCATED PT ABOUT NPO AFTER MN FOR PROCEDURE. BED LOCKED AND LOWERED, CL IN REACH. ASSESSMENT COMPLETE. WILL CONT POC.
[2020-07-23 05:46] LABS: BASOPHILS 0.6 % (0-2); EOSINOPHILS 0.8 % (0-7); HEMATOCRIT 31.8 % (36.0-48.0); LYMPHOCYTES 35.5 % (15-50); MCH 25.7 pg (26.0-34.0); MCHC 31.5 g/dL (31.0-37.0); MCV 81.4 fL (80.0-100.0); MEAN PLATELET VOLUME 9.7 fL (7.4-10.4); MONOCYTES 9.6 % (2-11); NEUTROPHILS 53.5 % (40-80); PLATELET COUNT 252 10x3/uL (130-400); RDW 17.6 % (11.5-14.5); WBC 7.8 10x3/uL (4.8-10.8)
[2020-07-23 06:18] LABS: ALKALINE PHOSPHATASE 92 U/L (30-120); BILIRUBIN - TOTAL 0.09 mg/dL (0.2-1.3); CALCIUM 8.1 mg/dL (8.5-10.1); CARBON DIOXIDE 24.4 mmol/L (21.0-32.0); CHLORIDE - SERUM 105 mmol/L (98-107); CREATININE - SERUM 0.9 mg/dL (0.6-1.3); GLUCOSE 101 mg/dL (74-106); MAGNESIUM - SERUM 1.9 mg/dL (1.8-2.4); POTASSIUM - SERUM 4.2 mmol/L (3.5-5.1); SODIUM 139 mmol/L (136-145); eGFR NON AFRICAN AMERICAN 78 mL/min (90-120)
[2020-07-23 06:19] LABS: ALT (SGPT) 29 U/L (10-68); CALC OSMOLALITY 279 mosm/kg (275-300); UREA NITROGEN 17 mg/dL (7-18)
[2020-07-23 12:34] LABS: HCG SERUM NEGATIVE (NEGATIVE)
--- NOTE | 2020-07-23 13:54 | NUR ---
PT DENIES PAIN AT THIS TIME. SLEEPING. AROUSES TO VERBAL STIMULI.
--- NOTE | 2020-07-23 14:05 | NUR ---
ARRIVE BACK TO ROOM VIA BED FROM PROCEDURE. SEDATED, AROUSES EASILY TO STIMULI. BP-135/78, HR-85, O2-99%. DENIES ANY NEEDS. CONTINUE PLAN OF CARE AND SAFETY PRECAUTIONS.
--- NOTE | 2020-07-23 20:04 | NUR ---
REPORT RECEIVED. PT A&O, UP IN BED WATCHING TV. NO S/S OF DISTRESS OBSERVED. RR EVEN & UNLABORED ON RA. DRESSING TO L BREAST C/D/I. IV TO L AC PATENT, INFUSING NS @ 50CC/HR. BED LOCKED AND LOWERED, CL IN REACH. ASSESSMENT COMPLETE. WILL CONT POC.
[2020-07-24] VITALS: BP 114/63
[2020-07-24 04:00] VITALS: BP 111/64
[2020-07-24 07:26] LABS: BASOPHILS 0.6 % (0-2); EOSINOPHILS 0 % (0-7); HEMATOCRIT 29.7 % (36.0-48.0); HEMOGLOBIN 9.5 g/dL (12-16); LYMPHOCYTES 22.6 % (15-50); MCH 25.9 pg (26.0-34.0); MCHC 32.1 g/dL (31.0-37.0); MCV 80.7 fL (80.0-100.0); MONOCYTES 5.5 % (2-11); NEUTROPHILS 71.3 % (40-80); PLATELET COUNT 251 10x3/uL (130-400); RBC 3.68 10x6/uL (4.00-5.40); RDW 17.5 % (11.5-14.5)
[2020-07-24 07:40] LABS: ALKALINE PHOSPHATASE 85 U/L (30-120); ALT (SGPT) 31 U/L (10-68); BILIRUBIN - TOTAL 0.05 mg/dL (0.2-1.3); CALC OSMOLALITY 280 mosm/kg (275-300); CALCIUM 8.6 mg/dL (8.5-10.1); CARBON DIOXIDE 24.3 mmol/L (21.0-32.0); CHLORIDE - SERUM 107 mmol/L (98-107); CREATININE - SERUM 0.8 mg/dL (0.6-1.3); GLUCOSE 126 mg/dL (74-106); MAGNESIUM - SERUM 1.8 mg/dL (1.8-2.4); POTASSIUM - SERUM 3.8 mmol/L (3.5-5.1); PROTEIN - SERUM 7.1 g/dL (6.4-8.2); SODIUM 139 mmol/L (136-145); UREA NITROGEN 16 mg/dL (7-18); eGFR NON AFRICAN AMERICAN 89 mL/min (90-120)
[2020-07-24 07:53] LABS: WBC 10.5 10x3/uL (4.8-10.8)
[2020-07-24 08:00] VITALS: BP 112/72
[2020-07-24 11:50] VITALS: BP 119/64
[2020-07-24 15:45] VITALS: BP 119/58
[2020-07-24 20:20] VITALS: BP 134/71
--- NOTE | 2020-07-24 20:30 | NUR ---
REPORT RECEIVED. PT A&O, UP IN BED WATCHING TV. NO S/S OF DISTRESS OBSERVED. RR EVEN & UNLABORED ON RA. IV TO L AC INFILTRATED. REMOVED, RESITED TO L FA WITH IV ATB INFUSING. BED LOCKED AND LOWERED, CL IN REACH. ASSESSMENT COMPLETE. WILL CONT POC.
[2020-07-25 00:02] VITALS: BP 113/59
[2020-07-25 04:48] VITALS: BP 94/55
[2020-07-25 07:22] LABS: BASOPHILS 0.6 % (0-2); HEMATOCRIT 28.3 % (36.0-48.0); HEMOGLOBIN 8.9 g/dL (12-16); MCH 25.5 pg (26.0-34.0); MCHC 31.5 g/dL (31.0-37.0); MCV 81.2 fL (80.0-100.0); MEAN PLATELET VOLUME 9.7 fL (7.4-10.4); MONOCYTES 6.6 % (2-11); NEUTROPHILS 49.8 % (40-80); PLATELET COUNT 235 10x3/uL (130-400); RBC 3.49 10x6/uL (4.00-5.40); RDW 17.5 % (11.5-14.5); WBC 7.9 10x3/uL (4.8-10.8)
[2020-07-25 07:33] LABS: ALBUMIN 2.9 g/dL (3.4-5.0); ALKALINE PHOSPHATASE 71 U/L (30-120); BILIRUBIN - TOTAL 0.12 mg/dL (0.2-1.3); CALC OSMOLALITY 276 mosm/kg (275-300); CALCIUM 8.1 mg/dL (8.5-10.1); CARBON DIOXIDE 24.5 mmol/L (21.0-32.0); CHLORIDE - SERUM 107 mmol/L (98-107); CREATININE - SERUM 0.7 mg/dL (0.6-1.3); GLUCOSE 80 mg/dL (74-106); MAGNESIUM - SERUM 1.6 mg/dL (1.8-2.4); POTASSIUM - SERUM 3.7 mmol/L (3.5-5.1); PROTEIN - SERUM 6.6 g/dL (6.4-8.2); SODIUM 139 mmol/L (136-145); UREA NITROGEN 13 mg/dL (7-18); eGFR NON AFRICAN AMERICAN > 90 mL/min (90-120)
[2020-07-25 07:34] LABS: ALT (SGPT) 48 U/L (10-68)
[2020-07-25 08:52] VITALS: BP 110/60
[2020-07-25] MEDS ORDERED: HYDROCODON-ACE1 EA10 PO (08:57)
[2020-07-25] MEDS ORDERED: CLEOCIN HCL300 MG PO (08:57)
--- NOTE | 2020-07-25 12:36 | MORECARE ---
CASE MANAGEMENT DISCHARGE SUMMARY PATIENT: BREANNE BROWNE UNIT: [id number] ADM DATE: 07/23/20 AGE: 29 : 88 SEX: F ROOM/BED: D.2124 AUTHOR: JANICE,DOC PHYSICIAN: REFERRING PHYSICIAN: KOJO GOMES MD DATE OF SERVICE: 07/25/20 Case Management Discharge Planning Summary DCP REVIEW SUMMARY ANTICIPATED D/C DATE: 07/25/2020 EXPECTED LOS : 2 CASE STATUS: DCP Initiated INITIAL REVIEW: 07/22/2020 INITIAL REVIEWER: Margarette Cates FINAL DISCHARGE DISPOSITION: : FINAL REVIEWER: FINAL REVIEW DATE: DCP [facility] Questions & Answers QUESTION: ANSWER : PATIENT: BREANNE BROWNE ENCOUNTER: [id number] MEDICAL RECORD#: [id number] ADMISSION DATE: 07/23/2020 DISCHARGE DATE: ATTENDING MD: KOJO BRAVO : AGE: 29 MARITAL STATUS: S DC PLAN ID: [id number] FACILITY: [facility] PRINTED ON: 07/25/20 12:36 CT All edits/amendments must be made on the electronic document DICTATION DATE: 07/25/20 1236 BESSEMER REGULATOR: DM 07/25/20 1236 RPT#: [id number] DC DATE: STATUS: ADM IN [facility] [address] [place] [address] END OF REPORT
--- NOTE | 2020-07-25 12:47 | MORECARE ---
CASE MANAGEMENT DISCHARGE SUMMARY PATIENT: BREANNE BROWNE UNIT: [id number] ADM DATE: 07/23/20 AGE: 29 : 88 SEX: F ROOM/BED: D.2124 AUTHOR: JANICE,DOC PHYSICIAN: REFERRING PHYSICIAN: KOJO GOMES MD DATE OF SERVICE: 07/25/20 Case Management Discharge Planning Summary DCP REVIEW SUMMARY ANTICIPATED D/C DATE: 07/25/2020 EXPECTED LOS : 2 CASE STATUS: DCP Initiated INITIAL REVIEW: 07/22/2020 INITIAL REVIEWER: Margarette Cates FINAL DISCHARGE DISPOSITION: 01 : Home or Self Care (Routine Discharge) FINAL REVIEWER: FINAL REVIEW DATE: DCP [facility] Questions & Answers QUESTION: ANSWER : PATIENT: BREANNE BROWNE ENCOUNTER: [id number] MEDICAL RECORD#: [id number] ADMISSION DATE: 07/23/2020 DISCHARGE DATE: ATTENDING MD: KOJO BRAVO : AGE: 29 MARITAL STATUS: S DC PLAN ID: [id number] FACILITY: [facility] PRINTED ON: 07/25/20 12:47 CT All edits/amendments must be made on the electronic document DICTATION DATE: 07/25/20 124 BALLET PROFESSOR: CANDI 07/25/20 124 RPT#: [id number] DC DATE: STATUS: ADM IN [facility] [address] [place] [address] END OF REPORT
--- NOTE | 2020-07-25 13:21 | MORECARE ---
CASE MANAGEMENT DISCHARGE SUMMARY PATIENT: BREANNE BROWNE UNIT: [id number] ADM DATE: 07/23/20 AGE: 29 : 88 SEX: F ROOM/BED: D.1328 AUTHOR: JANICE,DOC PHYSICIAN: REFERRING PHYSICIAN: KOJO GOMES MD DATE OF SERVICE: 07/25/20 Case Management Discharge Planning Summary COMMENTS ENTERED DATE: 07/25/20 13:06 CT COMMENT TYPE: Discharge Planning REVIEWER: Margarette Cates CM met with patient to complete discharge planning assessment and offer availability of needed services. Patient states that she lives independently at home with her dad prior to admission. Pt verified that home environment is safe and has electricity and running water. Patient denies need for transportation and state that they have funds for services and medications if needed. PCP is Dr. Dsouza and patient uses [facility]. CM offered and discussed home health, rehab services, and need for any medical equipment. Patient did not express need for offered services at this time. Transportation home will be provided by father Miguel Gunn ). Patient verbalized no additional needs at this time. DCP REVIEW SUMMARY ANTICIPATED D/C DATE: 07/25/2020 EXPECTED LOS : 2 CASE STATUS: DCP Initiated INITIAL REVIEW: 07/22/2020 INITIAL REVIEWER: Margarette Cates FINAL DISCHARGE DISPOSITION: 01 : Home or Self Care (Routine Discharge) FINAL REVIEWER: FINAL REVIEW DATE: IAP [facility] Questions & Answers QUESTION: ANSWER : PATIENT: BREANNE BROWNE ENCOUNTER: [id number] MEDICAL RECORD#: [id number] ADMISSION DATE: 07/23/2020 DISCHARGE DATE: ATTENDING MD: KOJO BRAVO : AGE: 29 MARITAL STATUS: S DC PLAN ID: [id number] FACILITY: [facility] PRINTED ON: 07/25/20 13:21 CT All edits/amendments must be made on the electronic document DICTATION DATE: 07/25/20 132 KNOT PICKER CLOTH: CANDI 07/25/20 132 RPT#: [id number] DC DATE: STATUS: ADM IN [facility] [address] [place] [address] END OF REPORT
--- NOTE | 2020-07-25 13:41 | MORECARE ---
CASE MANAGEMENT DISCHARGE SUMMARY PATIENT: BREANNE BROWNE UNIT: [id number] ADM DATE: 07/23/20 AGE: 29 : 88 SEX: F ROOM/BED: D.7032 AUTHOR: JANICE,DOC PHYSICIAN: REFERRING PHYSICIAN: KOJO GOMES MD DATE OF SERVICE: 07/25/20 Case Management Discharge Planning Summary COMMENTS ENTERED DATE: 07/25/20 13:06 CT COMMENT TYPE: Discharge Planning REVIEWER: Margarette Cates CM met with patient to complete discharge planning assessment and offer availability of needed services. Patient states that she lives independently at home with her dad prior to admission. Pt verified that home environment is safe and has electricity and running water. Patient denies need for transportation and state that they have funds for services and medications if needed. PCP is Dr. Dsouza and patient uses [facility]. CM offered and discussed home health, rehab services, and need for any medical equipment. Patient did not express need for offered services at this time. Transportation home will be provided by father Miguel Gunn ). Patient verbalized no additional needs at this time. DCP REVIEW SUMMARY ANTICIPATED D/C DATE: 07/25/2020 EXPECTED LOS : 2 CASE STATUS: DCP Initiated INITIAL REVIEW: 07/22/2020 INITIAL REVIEWER: Margarette Cates FINAL DISCHARGE DISPOSITION: 01 : Home or Self Care (Routine Discharge) FINAL REVIEWER: FINAL REVIEW DATE: [facility] Questions & Answers QUESTION: ANSWER : PATIENT: BREANNE BROWNE ENCOUNTER: [id number] MEDICAL RECORD#: [id number] ADMISSION DATE: 07/23/2020 DISCHARGE DATE: 07/25/2020 ATTENDING MD: KOJO BRAVO : AGE: 29 MARITAL STATUS: S DC PLAN ID: [id number] FACILITY: [facility] PRINTED ON: 07/25/20 13:41 CT All edits/amendments must be made on the electronic document DICTATION DATE: 07/25/201340 CIRCLE SHEAR OPERATOR: CANDI 07/25/20 134 RPT#: [id number] DC DATE:07/25/20 STATUS: DIS IN [place] [id number] [place] [address] END OF REPORT
== END 2020-07-25 13:28 | disposition home or self-care (01) | DRG 585 ==
LOC: D.ER 03:59 → D.M2 05:48 → OBSVTIME 05:48 → D.EDHOLD 05:48 → D.M2 07:37
PROVIDERS: Anesthesiology; Family Medicine; Surgery; ADMIT Emergency Medicine; ATTEND Emergency Medicine
PROC: 0HBU0ZX Excision of Left Breast, Open Approach, Diagnostic (ICD-10-PCS; principal; 2020-07-23 08:00)
DX: N61.1 Abscess of the breast and nipple (principal)